=== PATIENT | female | born 1980 | race Caucasian/White ===

== ENCOUNTER 2017-02-27 19:02 | Emergency (ER) | payer OTHER ==
[~2017-02-27] VITALS: Ht 160 cm; Wt 72.1 kg
[~2017-02-27 19:02] MED LIST: ABILIFY10 MG PO; ABILIFY15 MG PO; ADDERALL XR10 MG PO; ALBUTEROL0.09 MG/A2 INH; AMOXICILLIN500 M2 PO; AMOXICILLIN500 MG PO; AMOXIL500 MG PO; ANAFRANIL50 MG; ANAPROX DS550 MG PO; ATIVAN1 MG PO; AUGMENTIN 875 M1 TAB PO; AUGMENTIN 875875 MG PO; Anafranil25 MG PO; BROMFED-DM 480480 ML PO; CIPRO250 MG PO; CIPRO500 MG PO; CIPRO750 MG PO; CLARITIN10 MG PO; CLINDAMYCIN HC300 MG PO; CLINDAMYCIN150 MG PO; CORDROL20 MG PO; CYCLOBENZAPRINE10 MG PO; DIFLUCAN150 MG PO; DIFLUCAN200 MG PO; DITROPAN XL5 MG PO; DOXYCYCLINE MO100 MG PO; DUONEB 3 MG/3 ML3 M1 NEB; EC NAPROSYN500 MG PO; FLEXERIL10 MG PO; FLONASE 0.05% 121 EA NAS; KEFLEX500 MG PO; LEVAQUIN750 MG PO; MACROBID100 M1 PO; MICONAZOLE2% VG; MONISTAT 72% VG; MOTRIN600 MG PO; MOTRIN800 MG PO; MULTIVITAMIN FO1 CAP PO; NAPROSYN500 MG PO; NEURONTIN100 MG PO; PARAFON FORTE500 MG PO; PREDNICOT20 MG PO; PROZAC10 MG PO; PYRIDIUM200 MG PO; RISPERDAL2 MG PO; ROBITUSSIN DM 105 ML PO; SEPTRA DS 800 M1 TAB PO; SUBOXONE PO; TORADOL10 MG PO; TRAMADOL HCL50 MG PO; ULTRAM50 MG PO; VALIUM10 MG PO; VALIUM5 MG PO; VIBRA-TAB100 MG PO; VIBRAMYCIN100 MG PO; VICODIN 500 MG-1 TAB PO; VISTARIL25 M1 PO; VISTARIL50 MG PO; XANAX0.25 MG PO; XANAX1 MG PO; ZITHROMAX250 MG PO; ZOLOFT50 MG PO
[2017-02-27] MEDS ORDERED: ZITHROMAX250 MG PO (20:06)
== END 2017-02-27 20:22 | disposition home or self-care (01) ==
LOC: ED 19:02
DX: H66.91 Otitis media, unspecified, right ear (principal); M54.42 Lumbago with sciatica, left side; G89.29 Other chronic pain; Z98.51 Tubal ligation status; Z98.890 Other specified postprocedural states; Z79.899 Other long term (current) drug therapy; Z88.1 Allergy status to other antibiotic agents; Z88.8 Allergy status to other drugs, medicaments and biological substances; Z88.6 Allergy status to analgesic agent

== ENCOUNTER 2018-03-01 11:50 | Emergency (ER) | payer OTHER ==
[~2018-03-01] VITALS: Ht 12.7 cm; Wt 68.0 kg
[2018-03-01] MEDS ORDERED: MEDROL DOSEPAK4 MG PO (12:21)
[2018-03-01] MEDS ORDERED: NAPROSYN500 MG PO (12:21)
[2018-03-01] MEDS ORDERED: ZYRTEC10 MG PO (12:21)
[2018-03-01] MEDS ORDERED: ROBAXIN500 M1 PO (12:21)
== END 2018-03-01 13:16 | disposition home or self-care (01) ==
LOC: ED 11:50
DX: H66.92 Otitis media, unspecified, left ear (principal); M54.42 Lumbago with sciatica, left side; Z88.2 Allergy status to sulfonamides; Z79.899 Other long term (current) drug therapy

== ENCOUNTER 2018-05-16 12:33 | Emergency (ER) | payer OTHER ==
[~2018-05-16] VITALS: Ht 162.5 cm; Wt 72.6 kg
[~2018-05-16 12:33] MED LIST changes: +MEDROL DOSEPAK4 MG PO; +ROBAXIN500 M1 PO; +ZYRTEC10 MG PO
[2018-05-16 12:59] LABS: BILIRUBIN NEGATIVE (NEGATIVE); BLOOD 2+ (NEGATIVE); CLARITY TURBID (CLEAR); COLOR YELLOW (YELLOW); GLUCOSE NEGATIVE (NEGATIVE); KETONE NEGATIVE (NEGATIVE); LEUKO ESTERASE 3+ (NEGATIVE); NITRITE POSITIVE (NEGATIVE); UROBILINOGEN 0.2 E.U./dl (0.2-1.0)
[2018-05-16 13:06] LABS: BACTERIA 4+; WBC TNTC wbc/hpf (0-5)
[2018-05-16] MEDS ORDERED: MACROBID100 M1 PO (13:30)
[2018-05-16] MEDS ORDERED: CYCLOBENZAPRINE10 MG PO (13:31)
[2018-05-16] MEDS ORDERED: PREDNISONE50 MG PO (13:31)
== END 2018-05-16 13:19 | disposition home or self-care (01) ==
LOC: ED 12:33
PROVIDERS: Nurse Practitioner Family
DX: N39.0 Urinary tract infection, site not specified (principal); M54.32 Sciatica, left side; Z88.2 Allergy status to sulfonamides; Z79.2 Long term (current) use of antibiotics; Z79.899 Other long term (current) drug therapy

== ENCOUNTER 2018-06-05 23:05 | Emergency (ER) | payer OTHER ==
[~2018-06-05] VITALS: Ht 162.5 cm; Wt 72.6 kg
[~2018-06-05 23:05] MED LIST changes: +PREDNISONE50 MG PO
[2018-06-06 00:26] LABS: BILIRUBIN 1+ (NEGATIVE); BLOOD TRACE-INTACT (NEGATIVE); CLARITY SL CLOUDY (CLEAR); COLOR YELLOW (YELLOW); GLUCOSE NEGATIVE (NEGATIVE); KETONE NEGATIVE (NEGATIVE); LEUKO ESTERASE 1+ (NEGATIVE); NITRITE NEGATIVE (NEGATIVE); SPECIFIC GRAVITY 1.025 (1.005-1.030)
[2018-06-06 00:31] LABS: MUCOUS TRACE
[2018-06-06 00:35] LABS: WBC 16-20 wbc/hpf (0-5)
[2018-06-06] MEDS ORDERED: PREDNISONE10 MG PO (00:57)
[2018-06-06] MEDS ORDERED: ZITHROMAX250 MG PO (00:57)
[2018-06-06] MEDS ORDERED: PROAIR HFA8.5 GM INH (00:57)
== END 2018-06-06 01:12 | disposition home or self-care (01) ==
LOC: ED 23:05
PROVIDERS: Physician Assistant
DX: J40 Bronchitis, not specified as acute or chronic (principal); A59.9 Trichomoniasis, unspecified; F17.200 Nicotine dependence, unspecified, uncomplicated; Z87.440 Personal history of urinary (tract) infections; Z88.2 Allergy status to sulfonamides; Z79.899 Other long term (current) drug therapy

== ENCOUNTER → 2018-11-28 | Outpatient (CLI) | payer OTHER ==
[~2018-11-28] MED LIST changes: +MIRALAX POWDER17 G1 PO; -NEURONTIN100 MG PO; +NEURONTIN600 MG PO; +PREDNISONE10 MG PO; +PROAIR HFA8.5 GM INH; +SUBOXONE 8 MG-1 EACH PO; -SUBOXONE PO
[2018-11-28 16:10] LABS: BASO % 0.5 % (0.0-1.0); EOS # 0.1 10*3/uL (0.0-0.4); EOS % 1.4 % (1.0-4.0); HEMATOCRIT 41.5 % (37.0-47.0); HEMOGLOBIN 13.4 g/dl (12.0-16.0); LYMPH # 2.3 10*3/uL (1.3-4.4); LYMPH % 36.2 % (27.0-41.0); MEAN CELL VOLUME 83.8 fl (81.0-99.0); MEAN CORPUSCULAR HGB 27.1 pg (27.0-31.0); MEAN CORPUSCULAR HGB CONC 32.3 g/dl (33.0-37.0); MEAN PLATELET VOLUME 9.7 fl (9.6-12.3); MONO # 0.3 10*3/uL (0.1-1.0); MONO % 4.2 % (3.0-9.0); NEUT # 3.7 10*3/uL (2.3-7.9); NEUT % 57.4 % (47.0-73.0); PLATELET COUNT AUTOMATED 167 10*3/uL (130-400); RED BLOOD COUNT 4.95 10*6/uL (4.10-5.10); RED CELL DISTRI WIDTH 15.1 % (0-14.5); WHITE BLOOD COUNT 6.4 10*3/uL (4.8-10.8)
[2018-11-28 16:24] LABS: ALBUMIN 3.6 gm/dl (3.1-4.5); ALKALINE PHOSPHATASE 79 U/L (45-117); BILIRUBIN, DIRECT < 0.1 mg/dL (0.0-0.2); CHLORIDE 109 mmol/L (98-107); POTASSIUM 4.4 mmol/L (3.5-5.1); SGOT/AST 10 IU/L (3-35); SGPT/ALT 17 U/L (12-78); SODIUM 139 mmol/L (136-145); TOTAL PROTEIN 7.8 gm/dL (6.4-8.2)
[2018-11-29 11:09] LABS: BUN 10 mg/dl (7-24); CREATININE 0.71 mg/dL (0.55-1.02)
[2018-11-30 07:04] LABS: HEPATITIS B SURFACE AG Negative (Negative)
[2018-12-03 15:37] LABS: HEPATITIS C VIRUS ANTIBODY >11.0 s/co (0.0-0.9)
[2018-12-08 17:07] LABS: CORN, IGE <0.10 kU/L (Class 0); MILK (COW), IGE <0.10 kU/L (Class 0); PEANUT, IGE <0.10 kU/L (Class 0); SOYBEAN, IGE <0.10 kU/L (Class 0); WHEAT, IGE <0.10 kU/L (Class 0)
[2018-12-09 06:34] LABS: ALTERNARIA ALTERNATA, IGE <0.10 kU/L (Class 0); AMERICAN ELM, IGE <0.10 kU/L (Class 0); ASPERGILLUS FUMIGATU, IGE <0.10 kU/L (Class 0); BERMUDA GRASS, IGE <0.10 kU/L (Class 0); BIRCH, COMMON SILVER IGE <0.10 kU/L (Class 0); CLADOSPORIUM HERBARU, IGE <0.10 kU/L (Class 0); D FARINAE MITE <0.10 kU/L (Class 0); D PTERONYSSINUS <0.10 kU/L (Class 0); DOG DANDER, IGE <0.10 kU/L (Class 0); IMMUNOGLOBULIN IgE 002170 21 IU/mL (6-495); MAPLE LEAF SYCAMORE, IGE <0.10 kU/L (Class 0); MAPLE/BOX ELDER, IGE <0.10 kU/L (Class 0); MOUSE URINE IGE <0.10 kU/L (Class 0); PENICILLIUM CHRYSOGENUM, IGE <0.10 kU/L (Class 0); ROUGH PIGWEED, IGE <0.10 kU/L (Class 0); SHEEP SORREL (DOCK), IGE <0.10 kU/L (Class 0); SHORT RAGWEED, IGE <0.10 kU/L (Class 0); TIMOTHY, IGE <0.10 kU/L (Class 0); WALNUT TREE, IGE <0.10 kU/L (Class 0); WHITE ASH, IGE <0.10 kU/L (Class 0); WHITE MULBERRY, IGE <0.10 kU/L (Class 0); WHITE OAK, IGE <0.10 kU/L (Class 0)
== END | disposition home or self-care (01) ==
LOC: LAB 15:34
PROVIDERS: Anesthesiology Addiction Medicine; Pediatrics
DX: T78.1XXA Other adverse food reactions, not elsewhere classified, initial encounter (principal); F11.20 Opioid dependence, uncomplicated; X58.XXXA Exposure to other specified factors, initial encounter

== ENCOUNTER 2019-01-29 13:55 | Inpatient (IN) | payer OTHER ==
[~2019-01-29] VITALS: Ht 162.6 cm; Wt 77.6 kg
--- NOTE | ~2019-01-29 | EKG ---
[place], [place] ELECTROCARDIOGRAM REPORT NAME: ALIVIA PATTON UNIT #: [id number] ROOM: [facility] DOCTOR: LUCIE DRAFT REPORT BIRTHDATE: [birth year] [facility] Test Date: 2019-01-29 Test Time: 16:19:38 Pat Name: ALIVIA PATTON Department: Room: [facility] 1 Gender: F Main Entree Cook And Cashier: : 1980 Requested By: HENRY NEVES Order Number: [id number] Reading MD: Sharath Gibson MD Measurements Intervals [place] Rate: 77 P: 66 [place]: 141 QRS: 46 QRSD: 99 T: 58 QT: 392 QTc: 444 Interpretive Statements Sinus rhythm Ventricular premature complex No previous ECG available for comparison Electronically Signed On 01-30-2019 8:18:07 PDT by Sharath Gibson MD CM:EKGRPT:ELECTROCARDIOGRAM REPORT [id number] HENRY FAULKNER DRAFT REPORT HENRY NEVES
--- NOTE | 2019-01-29 14:50 | NUR ---
PATIENT MEETS [facility]. CINA=16. PATIENT WANTS TO FOLLOW UP WITH [facility] FOR HER AFTERCARE PLAN. VICENTE MADDOX B.A. LEAK OPERATOR [employer]
[2019-01-29 15:00] VITALS: BP 133/89
[2019-01-29 16:00] VITALS: BP 133/89
[2019-01-29 16:50] LABS: BILIRUBIN NEGATIVE (NEGATIVE); BLOOD NEGATIVE (NEGATIVE); CLARITY CLEAR (CLEAR); COLOR YELLOW (YELLOW); GLUCOSE NEGATIVE (NEGATIVE); KETONE NEGATIVE (NEGATIVE); LEUKO ESTERASE NEGATIVE (NEGATIVE); NITRITE NEGATIVE (NEGATIVE); SPECIFIC GRAVITY 1.015 (1.005-1.030)
[2019-01-29 16:53] LABS: BASO % 0.7 % (0.0-1.0); EOS # 0.1 10*3/uL (0.0-0.4); HEMATOCRIT 40.1 % (37.0-47.0); HEMOGLOBIN 13.4 g/dl (12.0-16.0); LYMPH # 2.3 10*3/uL (1.3-4.4); LYMPH % 36.9 % (27.0-41.0); MEAN CORPUSCULAR HGB 27.7 pg (27.0-31.0); MEAN CORPUSCULAR HGB CONC 33.4 g/dl (33.0-37.0); MEAN PLATELET VOLUME 9.9 fl (9.6-12.3); MONO # 0.4 10*3/uL (0.1-1.0); MONO % 7.1 % (3.0-9.0); NEUT # 3.2 10*3/uL (2.3-7.9); PLATELET COUNT AUTOMATED 149 10*3/uL (130-400); RED BLOOD COUNT 4.83 10*6/uL (4.10-5.10); RED CELL DISTRI WIDTH 13.9 % (0-14.5); WHITE BLOOD COUNT 6.1 10*3/uL (4.8-10.8)
[2019-01-29 17:02] LABS: ALBUMIN 3.7 gm/dl (3.1-4.5); ALKALINE PHOSPHATASE 69 U/L (45-117); BUN 7 mg/dl (7-24); CHLORIDE 112 mmol/L (98-107); CREATININE 0.75 mg/dL (0.55-1.02); POTASSIUM 4.2 mmol/L (3.5-5.1); SGOT/AST 16 IU/L (3-35); SGPT/ALT 18 U/L (12-78); SODIUM 141 mmol/L (136-145); TOTAL PROTEIN 7.4 gm/dL (6.4-8.2)
[2019-01-29 17:04] LABS: URINE AMPHETAMINES > 1000 (1000ng/ml); URINE BARBITURATES < 200 (200ng/ml); URINE BENZODIAZEPINES > 200 (200ng/ml); URINE CANNABINOIDS (THC) < 50 (50ng/ml); URINE COCAINE > 300 (300ng/ml); URINE METHADONE < 300 (300ng/ml); URINE OPIATES > 300 (300ng/ml)
[2019-01-29 17:07] LABS: BACTERIA TRACE
[2019-01-29 17:08] LABS: BETA-HCG, QUANT < 1.0 mIU/mL (1-3)
[2019-01-29 17:09] LABS: URINE PHENCYCLIDINE < 25 (25ng/ml)
--- NOTE | 2019-01-29 17:20 | NUR ---
PT RESTLESS IN BED, VERY ANXIOUS. MEDICATED WITH ROBAXIN FOR MUSCLE ACHES, REQUIP FOR RESTLESS LEGS, XANAX FOR ANXIETY. MEDICATED WITH NEURONTIN FOR FEET PAIN. TOLERATED ROUTINE SUBUTEX PO PER ORDER, SEE EMAR.
--- NOTE | 2019-01-29 19:19 | NUR ---
24 HR chart check completed.
[2019-01-29 20:00] VITALS: BP 140/82
--- NOTE | 2019-01-29 21:26 | NUR ---
PATIENT MEDICATED WITH PRNs FOR C/O WITHDRAWAL SYMPTOMS, SEE EMAR. WILL CONTINUE TO MONITOR.
--- NOTE | 2019-01-29 21:41 | NUR ---
MEDICATIONS TIMING ADJUSTED FOR NEURONTIN AND PROZAC D/T HOW PATIENT TAKES AT HOME.
[2019-01-30] VITALS: BP 112/66
[2019-01-30 08:00] VITALS: BP 94/60
--- NOTE | 2019-01-30 08:00 | NUR ---
PT TOLERATED ROUTINE MED WITH NO PROBLEM. C/O LEG CRAMPING AND RESTLESS. MEDICATED WITH ROBAXIN PO AND REQUIP PO. SEE EMAR CALL LIGHT IN REACH. SEE SHIFT ASSESSMENT.
--- NOTE | 2019-01-30 09:10 | NUR ---
MEDICATED WITH XANAX PER ROUTINE ORDER, SEE EMAR. FOR ANXIETY. CALL LIGHT IN REACH.
--- NOTE | 2019-01-30 10:00 | NUR ---
Patient resting. Responding to scheduled medications with fewer complaints of pain and anxiety.
--- NOTE | 2019-01-30 11:30 | NUR ---
RESTING IN BED WITH EYES CLOSED. RESP-EASY AND REGULAR. CALL LIGHT IN REACH.
[2019-01-30 12:00] VITALS: BP 116/76
--- NOTE | 2019-01-30 13:20 | NUR ---
PT MEDICATED WITH PO ZOFRAN FOR COMPLAINTS OF NAUSEA. WILL MONITOR FOR EFFECTIVENESS OF MED.
--- NOTE | 2019-01-30 15:44 | NUR ---
PATIENT'S AFTERCARE PLAN REMAINS THE SAME. PATIENT IS GOING TO FOLLOW UP WITH [facility] IN [place]. VICENTE MADDOX B.A. DIRECTOR OF SLOT OPERATIONS
[2019-01-30 16:00] VITALS: BP 110/55
--- NOTE | 2019-01-30 19:11 | NUR ---
24 HR chart check completed.
--- NOTE | 2019-01-30 21:48 | NUR ---
LYFT DRIVER CAME TO ME AND STATED THAT THE PT'S ROOM SMELLS LIKE SMOKE. MYSELF AND THE LYFT DRIVER ENTERED THE ROOM AND ASKED THE PATIENT IF SHE WAS SMOKING, THE PATIENT DENIED SMOKING AND STATED THAT THEY LOCKED HER CIGARETTES UP WHEN SHE CAME IN. EXPLAINED TO THE PATIENT THAT IT WAS IMPORTANT TO NOT SMOKE AND THAT PER POLICY WITH [facility] CAUGHT SMOKING WOULD BE AN AUTOMATIC DISCHARGE. PT STILL DENIED SMOKING AND STATED THAT SHE WOULD NOT SMOKE INSIDE. DR. MURRAY WAS CALLED AND MADE AWARE OF THE SITUATION. HE STATED TO JUST MONITOR THE PATIENT AT THIS TIME.
[2019-01-31] VITALS: BP 101/57; BP 105/57
[2019-01-31 08:00] VITALS: BP 100/52
--- NOTE | 2019-01-31 08:15 | NUR ---
PATIENT SITTING UP IN BED. PRN BENTYL GIVEN FOR C/O STOMACH CRAMPS. PRN MOTRIN GIVEN FOR C/O HEADACHE. WILL MONITOR FOR EFFECTIVENESS.
--- NOTE | 2019-01-31 09:00 | NUR ---
PRN MOTRIN & BENTYL EFFECTIVE PER PATIENT.
[2019-01-31 12:00] VITALS: BP 103/58
--- NOTE | 2019-01-31 13:03 | NUR ---
PATIENT HAS AN APPOINTMENT WITH [facility] IN [place] ON MONDAY, AT NOON. VICENTE MADDOX B.A. RECREATION PROFESSOR
[2019-01-31 16:00] VITALS: BP 104/77
--- NOTE | 2019-01-31 18:37 | NUR ---
Patient resting quietly with no c/o discomfort. Respirations easy and regular. Vital signs stable. No overt distress. MEKHI RAMÍREZ
[2019-01-31 20:00] VITALS: BP 125/60
--- NOTE | 2019-01-31 20:00 | NUR ---
PATIENT RESTING IN BED WITH EYES CLOSED AT THIS TIME. PATIENT DENIES ANY TREMORS, SWEATS, MUSCLES ACHES AT THIS TIME. PATIENT C/O CONSTIPATION AT THIS TIME- DULCOLAX WILL BE ADMINISTERED. CALL LIGHT WITHIN REACH. WILL MONITOR.
--- NOTE | 2019-01-31 22:02 | NUR ---
SENOKOT ADMINISTERED FOR COMPLAINTS OF CONSTIPATION. WILL MONITOR FOR EFFECTIVENESS.
--- NOTE | 2019-01-31 22:09 | NUR ---
PATIENT C/O NAUSEA. ZOFRAN ADMINISTERED PRESCRIBED. WILL MONITOR FOR EFFECTIVENESS.
--- NOTE | 2019-01-31 22:27 | NUR ---
PATIENT REQUESTING FOR NICODERM PATCH TO BE CHANGED. HAS NOT BEEN CHANGED SINCE 01/29. OLD PATCH REMOVED AND NEW PATCH PLACED ON RIGHT UPPER ARM.
[2019-02-01] VITALS: BP 106/68
--- NOTE | 2019-02-01 | NUR ---
PATIENT RESTING WITH EYES CLOSED. RESPIRATIONS EASY AND UNLABORED ON ROOM AIR. NO FURTHER COMPLAINTS OF NAUSEA. CALL S[place]TON WITHIN REACH. WILL MONITOR.
--- NOTE | 2019-02-01 03:27 | NUR ---
24 HR chart check completed.
[2019-02-01 07:25] LABS: CREATININE 0.76 mg/dL (0.55-1.02)
[2019-02-01 07:33] LABS: BASO % 0.5 % (0.0-1.0); EOS # 0.1 10*3/uL (0.0-0.4); EOS % 1.7 % (1.0-4.0); HEMATOCRIT 39.1 % (37.0-47.0); HEMOGLOBIN 12.9 g/dl (12.0-16.0); LYMPH # 2.6 10*3/uL (1.3-4.4); LYMPH % 41.7 % (27.0-41.0); MEAN PLATELET VOLUME 10.8 fl (9.6-12.3); MONO # 0.4 10*3/uL (0.1-1.0); MONO % 5.5 % (3.0-9.0); NEUT # 3.1 10*3/uL (2.3-7.9); NEUT % 49.6 % (47.0-73.0); PLATELET COUNT AUTOMATED 133 10*3/uL (130-400); WHITE BLOOD COUNT 6.3 10*3/uL (4.8-10.8)
--- NOTE | 2019-02-01 07:34 | NUR ---
MEDICATED WITH SL ZOFRAN ORDERED PER PT REQUEST FOR C/O NAUSEA.
[2019-02-01 08:00] VITALS: BP 114/64
--- NOTE | 2019-02-01 09:18 | NUR ---
MEDICATED WITH PO DULCOLAX ORDERED PER PT REQUEST FOR C/O CONSTIPATION.
--- NOTE | 2019-02-01 10:00 | NUR ---
PATIENT STATED PRN DULCOLAX WAS NOT EFFECTIVE. PRN ZOFRAN WAS EFFECTIVE.
--- NOTE | 2019-02-01 11:30 | NUR ---
PATIENT GIVEN ALL DISCHARGE INSTRUCTIONS AND ALL QUESTIONS ANSWERED. PATIENT STATED SHE COULD NOT LEAVE UNTIL 330-4PM WHEN SHE HAD KEYS TO HER APARTMENT. TREATING ENGINEER NOTIFIED THAT PATIENT HAD BELONGINGS IN THE LOCK BOX.
--- NOTE | 2019-02-01 15:30 | NUR ---
PATIENT STATED SHE NEEDED ANOTHER HALF HOUR BEFORE SHE COULD LEAVE. INFORMED PATIENT TO LET US KNOW SO WE CAN RETURN HER STUFF.
[2019-02-01 16:00] VITALS: BP 114/64
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
== END 2019-02-01 17:01 | disposition home or self-care (01) | DRG 897 ==
LOC: 5E 13:55
PROVIDERS: Internal Medicine; ADMIT Internal Medicine
DX: F11.23 Opioid dependence with withdrawal (principal); B37.3 Candidiasis of vulva and vagina; H60.503 Unspecified acute noninfective otitis externa, bilateral; G89.29 Other chronic pain; M54.40 Lumbago with sciatica, unspecified side; F43.10 Post-traumatic stress disorder, unspecified; F32.9 Major depressive disorder, single episode, unspecified; M54.16 Radiculopathy, lumbar region; F17.210 Nicotine dependence, cigarettes, uncomplicated; Z71.6 Tobacco abuse counseling; Z98.51 Tubal ligation status; Z98.891 History of uterine scar from previous surgery; Z88.2 Allergy status to sulfonamides

== ENCOUNTER 2019-03-26 16:46 | Inpatient (IN) | payer OTHER ==
[~2019-03-26] VITALS: Ht 163.8 cm; Wt 79.9 kg
--- NOTE | 2019-03-26 17:16 | NUR ---
PATIENT MEETS [facility]. CINA=18. PATIENT WANTS TO FOLLOW UP WITH [facility] FOR HER AFTERCARE PLAN. VICENTE MADDOX B.A. SEARCH LEAD
[2019-03-26 17:46] VITALS: BP 142/94
--- NOTE | 2019-03-26 17:46 | NUR ---
Time: 1745 A 38 year old FEMALE admitted to under services of RITESH RAYGOZA DO. Pt. arrived [place] ambulatory from [place]. Chief complaint: OPIATE WITHDRAWAL. JOAN BRADFORD
[2019-03-26] MEDS ORDERED: PROVENTIL HFA6.7 GM INH (18:10)
[2019-03-26 18:30] LABS: BASO % 0.5 % (0.0-1.0); EOS # 0.1 10*3/uL (0.0-0.4); EOS % 0.8 % (1.0-4.0); HEMATOCRIT 41.6 % (37.0-47.0); HEMOGLOBIN 13.5 g/dl (12.0-16.0); LYMPH # 1.9 10*3/uL (1.3-4.4); MEAN CELL VOLUME 83.9 fl (81.0-99.0); MEAN CORPUSCULAR HGB 27.2 pg (27.0-31.0); MEAN CORPUSCULAR HGB CONC 32.5 g/dl (33.0-37.0); MEAN PLATELET VOLUME 10.1 fl (9.6-12.3); MONO # 0.3 10*3/uL (0.1-1.0); MONO % 4.6 % (3.0-9.0); NEUT # 4.1 10*3/uL (2.3-7.9); NEUT % 64.9 % (47.0-73.0); PLATELET COUNT AUTOMATED 134 10*3/uL (130-400); RED BLOOD COUNT 4.96 10*6/uL (4.10-5.10); RED CELL DISTRI WIDTH 13.8 % (0-14.5); WHITE BLOOD COUNT 6.4 10*3/uL (4.8-10.8)
[2019-03-26 18:41] LABS: ALBUMIN 3.4 gm/dl (3.1-4.5); ALKALINE PHOSPHATASE 84 U/L (45-117); BUN 12 mg/dl (7-24); CHLORIDE 107 mmol/L (98-107); CREATININE 0.77 mg/dL (0.55-1.02); POTASSIUM 3.8 mmol/L (3.5-5.1); SGOT/AST 14 IU/L (3-35); SGPT/ALT 19 U/L (12-78); SODIUM 137 mmol/L (136-145); TOTAL PROTEIN 7.9 gm/dL (6.4-8.2)
[2019-03-26 18:47] LABS: ETHYL ALCOHOL < 3.0 mg/dl (<3)
[2019-03-26 18:54] LABS: BILIRUBIN NEGATIVE (NEGATIVE); BLOOD NEGATIVE (NEGATIVE); CLARITY CLEAR (CLEAR); COLOR STRAW (YELLOW); GLUCOSE NEGATIVE (NEGATIVE); KETONE NEGATIVE (NEGATIVE); LEUKO ESTERASE NEGATIVE (NEGATIVE); NITRITE NEGATIVE (NEGATIVE); SPECIFIC GRAVITY <= 1.005 (1.005-1.030); UROBILINOGEN 0.2 E.U./dl (0.2-1.0)
[2019-03-26 18:55] LABS: INTERNATIONAL NORM RATIO 0.9 (2.0-3.5)
[2019-03-26 18:56] LABS: URINE AMPHETAMINES < 1000 (1000ng/ml); URINE BARBITURATES < 200 (200ng/ml); URINE BENZODIAZEPINES > 200 (200ng/ml); URINE CANNABINOIDS (THC) < 50 (50ng/ml); URINE COCAINE < 300 (300ng/ml); URINE METHADONE < 300 (300ng/ml); URINE OPIATES < 300 (300ng/ml)
[2019-03-26 19:04] LABS: BACTERIA TRACE; EPITHELIAL CELLS 0-2
[2019-03-26 19:07] LABS: URINE PHENCYCLIDINE < 25 (25ng/ml)
[2019-03-26 20:00] VITALS: BP 113/76
--- NOTE | 2019-03-26 20:03 | NUR ---
C/O RESTLESSNESS IN LEGS AND MUSCLE ACHES. REQUIP AND ROBAXIN GIVEN PER ORDER FOR WITHDRAWL SYMPTOMS. SEE MAR.
--- NOTE | 2019-03-26 21:00 | NUR ---
REQUIP AND ROBAXIN EFFECTIVE FOR LEG RESTLESSNES AND MUSCLE ACHES PER PT.
--- NOTE | 2019-03-26 21:45 | NUR ---
PT. REGINA CASAS SAYS "I TAKE THAT IN THE MORNIGN".
[2019-03-27] VITALS: BP 113/74
--- NOTE | 2019-03-27 00:37 | NUR ---
24 HR chart check completed.
[2019-03-27 04:00] VITALS: BP 118/77
[2019-03-27 08:00] VITALS: BP 114/78
--- NOTE | 2019-03-27 09:23 | NUR ---
PATIENT MEDICATED WITH PO ROBAXIN AT THIS TIME FOR COMPLAINTS OF LEG PAIN/MUSCLE ACHES. WILL MONITOR FOR EFFECTIVENESS.
--- NOTE | 2019-03-27 10:30 | NUR ---
PT STATES THAT LEGS ARE FEELING LESS CRAMPED; ROBAXIN EFFECTIVE.
--- NOTE | 2019-03-27 11:52 | NUR ---
PT C/O ABD CRAMPING AT THIS TIME AND MEDICATED WITH PO BENTYL PER ORDER. WILL MONITOR FOR EFFECTIVENESS.
[2019-03-27 12:00] VITALS: BP 120/77
--- NOTE | 2019-03-27 13:00 | NUR ---
PER PATIENT, PRN MEDICATION HAVE BEEN EFFECTIVE.
--- NOTE | 2019-03-27 13:12 | NUR ---
PT MEDICATED WITH PO REQUIP & ZOFRAN FOR COMPLAINTS OF RESTLESSNESS IN LEGS AND NAUSEA. WILL MONITOR FOR EFFECTIVENESS.
[2019-03-27 16:00] VITALS: BP 113/71
--- NOTE | 2019-03-27 16:40 | NUR ---
PATIENT IS GOING TO FOLLOW UP WITH [facility] FOR HER AFTERCARE PLAN. VICENTE MADDOX B.A. AUTOMOTIVE WARRANTY ADMINISTRATOR
--- NOTE | 2019-03-27 19:42 | NUR ---
C/O NAUSEA AND MUSCLE CRAMPS IN HER LEGS. ZOFRAN AND ROBAXIN GIVEN PER ORDER FOR WITHDRAWL SYMPTOMS.
[2019-03-27 20:00] VITALS: BP 121/82
--- NOTE | 2019-03-27 20:40 | NUR ---
ZOFRAN AND ROBAXIN EFFECTIVE FOR NAUSEA AND MUSCLE CRAMPING PER PT.
[2019-03-28] VITALS: BP 116/62
--- NOTE | 2019-03-28 01:00 | NUR ---
C/O NAUSEA, ZOFRAN GIVEN FOR THIS. C/O RESTLESSNESS OF LEGS REQUIP GIVEN FOR THIS.SEE MAR.
--- NOTE | 2019-03-28 02:00 | NUR ---
ZOFRAN AND REQUIP EFFECTIVE FOR NAUSEA AND RESTLESSNESS PER PT.
--- NOTE | 2019-03-28 03:59 | NUR ---
24 HR chart check completed.
--- NOTE | 2019-03-28 06:00 | NUR ---
SLEPT WELL THROUGH OUT NIGHT. NO C/O THIS AM.
[2019-03-28 08:00] VITALS: BP 106/60
--- NOTE | 2019-03-28 09:45 | NUR ---
PATIENT C/O NAUSEA AND MUSCLE ACHES AT THIS TIME AND REQUESTING PRN MEDICATION. MEDICATED WITH ZOFRAN AND ROBAXIN PER ORDER. ALSO APPLIED NICODERM PATCH PER ORDER. WILL MONITOR.
--- NOTE | 2019-03-28 11:00 | NUR ---
PT STATES THAT NAUSEA AND MUSCLE ACHES HAVE IMPROVED; PRN MEDS EFFECTIVE AT THIS POINT.
--- NOTE | 2019-03-28 11:56 | NUR ---
PATIENT C/O STOMACH CRAMPING AT THIS TIME AND MEDICATED WITH BENTYL PER ORDER. WILL MONITOR FOR EFFECTIVENESS.
[2019-03-28 12:00] VITALS: BP 119/68
--- NOTE | 2019-03-28 12:00 | NUR ---
PT MEDICATED WITH PO BENTYL PER ORDER FOR STOMACH CRAMPS. WILL MONITOR.
--- NOTE | 2019-03-28 13:15 | NUR ---
PER PATIENT, PRN BENTYL HAS BEEN EFFECTIVE. NO FURTHER COMPLAINTS AT THIS TIME.
--- NOTE | 2019-03-28 15:52 | NUR ---
PATIENT WILL BE FOLLOWING UP WITH [facility]. PATIENT HAS AN UPCOMING APPOINTMENT ON MONDAY, March AT 9AM. VICENTE MADDOX B.A. AMBULATORY CARE COORDINATOR
[2019-03-28 16:00] VITALS: BP 130/75
--- NOTE | 2019-03-28 17:12 | NUR ---
PATIENT COMPLAINING OF RESTLESS LEGS AT THIS TIME. MEDICATED WITH PO REQUIP PER PRN ORDER. WILL MONITOR FOR EFFECTIVENESS.
--- NOTE | 2019-03-28 18:30 | NUR ---
PATIENT STATES THAT LEGS HAVE IMPROVED AT THIS TIME, DENIES COMPLAINTS. CALL LIGHT WITHIN REACH.
--- NOTE | 2019-03-28 19:48 | NUR ---
C/O MUSCLE CRAMPING IN LEGS AND ABD CRAMPING. ROBAXIN AND BENTYL GIVEN FOR THESE WITHDRAWL SYMPTOMS. SEE MAR.
[2019-03-28 20:00] VITALS: BP 111/58
--- NOTE | 2019-03-28 20:40 | NUR ---
ROBAXIN AND BENTYL EFFECTIVE FOR CRAMPS PER PT.
--- NOTE | 2019-03-28 20:53 | NUR ---
24 HR chart check completed.
--- NOTE | 2019-03-28 23:15 | NUR ---
ZOFRAN GIVEN PER ORDER FOR NAUSEA SEE MAR.
[2019-03-29] VITALS: BP 123/65
--- NOTE | 2019-03-29 00:30 | NUR ---
ZOFRAN EFFECTIVE FOR NAUSEA PER PT.
--- NOTE | 2019-03-29 06:01 | NUR ---
C/O RESTLESSNESS OF HER LEGS REQUIP GIVEN PER ORDER FOR WITHDRAWL SYMPTOM. SEE MAR.
[2019-03-29 08:00] VITALS: BP 103/67
--- NOTE | 2019-03-29 09:42 | NUR ---
PRN MEDICATIONS HAVE BEEN EFFECTIVE FOR RELIEF OF CRAMPY MUSCLES/STOMACH
[2019-03-29] MEDS ORDERED: DOXYCYCLINE MO100 M1 PO (10:37)
--- NOTE | 2019-03-29 12:25 | NUR ---
Pt came to nurses station and states she leaving.
--- NOTE | 2019-03-29 12:46 | NUR ---
DC TO HOME
== END 2019-03-29 12:25 | disposition home or self-care (01) | DRG 773 ==
LOC: 5E 16:46
PROVIDERS: Student in an Organized Health Care Education/Training Program; ADMIT Family Medicine
DX: F11.23 Opioid dependence with withdrawal (principal); F41.9 Anxiety disorder, unspecified; F19.10 Other psychoactive substance abuse, uncomplicated; F32.9 Major depressive disorder, single episode, unspecified; J45.909 Unspecified asthma, uncomplicated; M54.9 Dorsalgia, unspecified; G89.29 Other chronic pain; F43.10 Post-traumatic stress disorder, unspecified; F17.210 Nicotine dependence, cigarettes, uncomplicated; Z98.51 Tubal ligation status; Z98.891 History of uterine scar from previous surgery; Z82.49 Family history of ischemic heart disease and other diseases of the circulatory system; Z83.3 Family history of diabetes mellitus; Z84.1 Family history of disorders of kidney and ureter; Z80.1 Family history of malignant neoplasm of trachea, bronchus and lung; Z88.2 Allergy status to sulfonamides; Z88.8 Allergy status to other drugs, medicaments and biological substances; Z79.899 Other long term (current) drug therapy; Z71.6 Tobacco abuse counseling

== ENCOUNTER 2019-04-15 13:31 | Emergency (ER) | payer OTHER ==
[~2019-04-15] VITALS: Ht 162.5 cm; Wt 72.6 kg
--- NOTE | ~2019-04-15 | EKG ---
[place], [place] ELECTROCARDIOGRAM REPORT NAME: ALIVIA PATTON UNIT #: [id number] ROOM: DOCTOR: EPIPHANY DRAFT REPORT BIRTHDATE: [birth year] [facility] Test Date: 2019-04-15 Test Time: 13:34:05 Pat Name: ALIVIA PATTON Department: Room: Gender: F Labor/Excavator: : 1980 Requested By: ESTUARDO HERNANDEZ Order Number: [id number] Reading MD: Domonique Yeh MD Measurements Intervals [place] Rate: 99 P: 81 IN: 138 QRS: 46 QRSD: 90 T: 10 QT: 345 QTc: 443 Interpretive Statements Sinus rhythm Compared to ECG 01/29/2019 16:19:38 Ventricular premature complex(es) no longer present Electronically Signed On 04-17-2019 6:36:28 PST by Domonique Yeh MD CM:EKGRPT:ELECTROCARDIOGRAM REPORT [id number] ESTUARDO HERNANDEZ MD EPIPHROSARIO DRAFT REPORT ESTUARDO HERNANDEZ MD
[~2019-04-15 13:31] MED LIST changes: +DOXYCYCLINE MO100 M1 PO; +PROVENTIL HFA6.7 GM INH
[2019-04-15 14:36] LABS: BASO % 0.2 % (0.0-1.0); EOS # 0.1 10*3/uL (0.0-0.4); EOS % 1.2 % (1.0-4.0); HEMOGLOBIN 12.8 g/dl (12.0-16.0); LYMPH # 1.8 10*3/uL (1.3-4.4); LYMPH % 22.1 % (27.0-41.0); MEAN CELL VOLUME 85.3 fl (81.0-99.0); MEAN CORPUSCULAR HGB 27.3 pg (27.0-31.0); MEAN PLATELET VOLUME 9.3 fl (9.6-12.3); MONO # 0.4 10*3/uL (0.1-1.0); MONO % 4.4 % (3.0-9.0); NEUT % 71.9 % (47.0-73.0); PLATELET COUNT AUTOMATED 180 10*3/uL (130-400); RED BLOOD COUNT 4.69 10*6/uL (4.10-5.10); RED CELL DISTRI WIDTH 14.5 % (0-14.5); WHITE BLOOD COUNT 8.3 10*3/uL (4.8-10.8)
[2019-04-15 14:52] LABS: ACT PARTIAL THROMBO TIME 26.8 SECONDS (20.0-32.1); INTERNATIONAL NORM RATIO 0.9 (2.0-3.5)
[2019-04-15 14:53] LABS: ALBUMIN 3.6 gm/dl (3.1-4.5); ALKALINE PHOSPHATASE 88 U/L (45-117); BUN 12 mg/dl (7-24); CHLORIDE 106 mmol/L (98-107); CREATININE 0.85 mg/dL (0.55-1.02); POTASSIUM 3.9 mmol/L (3.5-5.1); SGOT/AST 19 IU/L (3-35); SGPT/ALT 20 U/L (12-78); SODIUM 138 mmol/L (136-145); TOTAL PROTEIN 7.8 gm/dL (6.4-8.2)
[2019-04-15 14:55] LABS: TROPONIN I < 0.015 ng/ml (<0.045)
[2019-04-15] MEDS ORDERED: AVPAK AZITHROM250 MG PO (16:38)
[2019-04-15] MEDS ORDERED: PROVENTIL HFA6.7 GM INH (16:38)
[2019-04-15] MEDS ORDERED: SPIRIVA -- 3018 MCG INH (16:38)
[2019-04-15] MEDS ORDERED: PREDNISONE50 MG PO (16:38)
== END 2019-04-15 17:23 | disposition home or self-care (01) ==
LOC: ED 13:31
PROVIDERS: Emergency Medicine
DX: F13.10 Sedative, hypnotic or anxiolytic abuse, uncomplicated (principal); J44.1 Chronic obstructive pulmonary disease with (acute) exacerbation; J18.9 Pneumonia, unspecified organism; F11.10 Opioid abuse, uncomplicated; G89.29 Other chronic pain; F17.210 Nicotine dependence, cigarettes, uncomplicated; Z79.2 Long term (current) use of antibiotics; Z79.899 Other long term (current) drug therapy

== ENCOUNTER 2019-05-09 12:12 | Inpatient (IN) | payer OTHER ==
[~2019-05-09] VITALS: Ht 162.5 cm; Wt 75.4 kg
[~2019-05-09 12:12] MED LIST changes: +AVPAK AZITHROM250 MG PO; +SPIRIVA -- 3018 MCG INH
--- NOTE | 2019-05-09 13:12 | NUR ---
PATIENT MEETS [facility]. CINA=16. PATIENT WANTS TO FOLLOW UP WITH [facility] FOR RESIDENTIAL TREATMENT. VICENTE MADDOX B.A. DEPUTY PROSECUTING ATTORNEY
[2019-05-09 13:45] VITALS: BP 127/86
[2019-05-09 13:46] LABS: BASO % 0.3 % (0.0-1.0); EOS # 0.2 10*3/uL (0.0-0.4); EOS % 2.3 % (1.0-4.0); HEMATOCRIT 40.1 % (37.0-47.0); HEMOGLOBIN 12.9 g/dl (12.0-16.0); LYMPH # 2.4 10*3/uL (1.3-4.4); LYMPH % 33.9 % (27.0-41.0); MEAN CELL VOLUME 83.5 fl (81.0-99.0); MEAN CORPUSCULAR HGB 26.9 pg (27.0-31.0); MEAN CORPUSCULAR HGB CONC 32.2 g/dl (33.0-37.0); MEAN PLATELET VOLUME 9.6 fl (9.6-12.3); MONO # 0.5 10*3/uL (0.1-1.0); MONO % 6.4 % (3.0-9.0); NEUT % 56.5 % (47.0-73.0); PLATELET COUNT AUTOMATED 203 10*3/uL (130-400); RED CELL DISTRI WIDTH 15.8 % (0-14.5); WHITE BLOOD COUNT 7.1 10*3/uL (4.8-10.8)
--- NOTE | 2019-05-09 13:46 | NUR ---
A 39, admitted to , under the services of RITESH Raygoza DO with a diagnosis of Opiate Dependence. Chief complaint is Opiate withdrawal. [place]. Monitor applied. Initial assessment completed. Vital signs taken and recorded. RITESH RAYGOZA DO notified of admission to the unit. Orders received. See assessment for past medical history, medications and allergies. Patient and/or family oriented to unit. [facility] visitation policy reviewed. Clothing/patient valuable form completed. JOSIAH MARIA
[2019-05-09 13:55] LABS: BILIRUBIN NEGATIVE (NEGATIVE); BLOOD NEGATIVE (NEGATIVE); CLARITY SL CLOUDY (CLEAR); COLOR YELLOW (YELLOW); GLUCOSE NEGATIVE (NEGATIVE); KETONE NEGATIVE (NEGATIVE); LEUKO ESTERASE NEGATIVE (NEGATIVE); NITRITE NEGATIVE (NEGATIVE); SPECIFIC GRAVITY 1.015 (1.005-1.030); UROBILINOGEN 0.2 E.U./dl (0.2-1.0)
[2019-05-09 13:57] LABS: INTERNATIONAL NORM RATIO 0.9 (2.0-3.5)
[2019-05-09 14:01] LABS: ALBUMIN 3.6 gm/dl (3.1-4.5); ALKALINE PHOSPHATASE 406 U/L (45-117); BUN 9 mg/dl (7-24); CHLORIDE 103 mmol/L (98-107); CREATININE 0.86 mg/dL (0.55-1.02); POTASSIUM 3.5 mmol/L (3.5-5.1); SGOT/AST 136 IU/L (3-35); SGPT/ALT 812 U/L (12-78); SODIUM 136 mmol/L (136-145); TOTAL PROTEIN 8.4 gm/dL (6.4-8.2)
[2019-05-09 14:02] LABS: ETHYL ALCOHOL < 3.0 mg/dl (<3)
[2019-05-09 14:03] LABS: BETA-HCG, QUANT < 1.0 mIU/mL (1-3)
[2019-05-09 14:04] LABS: BACTERIA TRACE; MUCOUS 1+
[2019-05-09 14:05] LABS: URINE AMPHETAMINES > 1000 (1000ng/ml); URINE BARBITURATES < 200 (200ng/ml); URINE BENZODIAZEPINES > 200 (200ng/ml); URINE CANNABINOIDS (THC) < 50 (50ng/ml); URINE COCAINE > 300 (300ng/ml); URINE METHADONE < 300 (300ng/ml); URINE OPIATES > 300 (300ng/ml)
[2019-05-09 14:10] LABS: URINE PHENCYCLIDINE < 25 (25ng/ml)
[2019-05-09] MEDS ORDERED: REXULTI1 MG PO ×2 (14:43→14:45)
[2019-05-09 16:00] VITALS: BP 128/95
[2019-05-09 20:00] VITALS: BP 108/72
[2019-05-10] VITALS: BP 115/78
[2019-05-10 06:55] LABS: BASO % 0.3 % (0.0-1.0); EOS # 0.1 10*3/uL (0.0-0.4); EOS % 1.7 % (1.0-4.0); HEMATOCRIT 38.6 % (37.0-47.0); HEMOGLOBIN 12.6 g/dl (12.0-16.0); LYMPH # 2.4 10*3/uL (1.3-4.4); LYMPH % 36.2 % (27.0-41.0); MEAN CELL VOLUME 82.1 fl (81.0-99.0); MEAN CORPUSCULAR HGB 26.8 pg (27.0-31.0); MEAN CORPUSCULAR HGB CONC 32.6 g/dl (33.0-37.0); MEAN PLATELET VOLUME 9.9 fl (9.6-12.3); MONO # 0.5 10*3/uL (0.1-1.0); MONO % 7.6 % (3.0-9.0); NEUT # 3.6 10*3/uL (2.3-7.9); NEUT % 53.9 % (47.0-73.0); PLATELET COUNT AUTOMATED 211 10*3/uL (130-400); RED CELL DISTRI WIDTH 15.8 % (0-14.5); WHITE BLOOD COUNT 6.6 10*3/uL (4.8-10.8)
[2019-05-10 07:10] LABS: ALKALINE PHOSPHATASE 340 U/L (45-117); BUN 13 mg/dl (7-24); CHLORIDE 109 mmol/L (98-107); CREATININE 0.76 mg/dL (0.55-1.02); SGOT/AST 77 IU/L (3-35); SGPT/ALT 581 U/L (12-78); SODIUM 141 mmol/L (136-145); TOTAL PROTEIN 7.3 gm/dL (6.4-8.2)
[2019-05-10 08:00] VITALS: BP 97/73
[2019-05-10 08:08] LABS: HEPATITIS B SURFACE AG Negative (Negative)
--- NOTE | 2019-05-10 08:40 | NUR ---
PT COMPLAINS "PAIN IN MY LEGS IS A 5/10 AND I FEEL NAUSEOUS." GIVEN MOTRIN 600 MG PO AND ZOFRAN 4 MG PO. WILL CONTINUE TO ASSESS. JOSELUIS MCINTYRECC
--- NOTE | 2019-05-10 11:06 | NUR ---
PATIENT HAS BEEN ACCEPTED TO [facility] FOR RESIDENTIAL TREATMENT. PATIENT IS SCHEDULED TO BE THERE ON MONDAY, May BY 2PM. NE STAFF WILL SENT UP TRANSPORTATION THROUGH HER INSURANCE IF NEEDED. PATIENT AGREES AND UNDERSTANDS HER AFTERCARE PLAN. VICENTE MADDOX B.A. MOLD FINISHER
[2019-05-10 12:00] VITALS: BP 102/65
--- NOTE | 2019-05-10 13:37 | NUR ---
Requip given per patient c/o wrestless legs. Will monitor.
[2019-05-10 16:00] VITALS: BP 104/67
[2019-05-10 20:00] VITALS: BP 113/70
--- NOTE | 2019-05-10 20:30 | NUR ---
A 39, admitted to 5E, under the services of RITESH Raygoza DO with a diagnosis of anxiety, generalized weakness. Chief complaint is inability to preform ADL'S. Patient arrived via bed from [place]. Monitor applied. Initial assessment completed. Vital signs taken and recorded. RITESH RAYGOZA DO notified of admission to the unit. Orders received. See assessment for past medical history, medications and allergies. Patient and/or family oriented to unit. [address] visitation policy reviewed. Clothing/patient valuable form completed. PT CRYING AND ROCKING BACK AND FORTH. STATES SHE IS EXTREMELY ANXIOUS. NO WOUNDS NOTED. JIA ROGER
[2019-05-11] VITALS: BP 106/73
[2019-05-11 06:43] LABS: SGOT/AST 66 IU/L (3-35); SGPT/ALT 400 U/L (12-78)
[2019-05-11 06:45] LABS: ALKALINE PHOSPHATASE 298 U/L (45-117)
[2019-05-11 08:00] VITALS: BP 110/62
--- NOTE | 2019-05-11 09:21 | NUR ---
MEDICATED WITH REQUIP PER ORDER AND REQUEST.
[2019-05-11 12:00] VITALS: BP 104/56
[2019-05-11 16:00] VITALS: BP 108/58
--- NOTE | 2019-05-11 18:10 | NUR ---
MEDICATED WITH PRN ROBAXIN PER ORDER AND REQUEST.
[2019-05-11 20:00] VITALS: BP 116/63
--- NOTE | 2019-05-11 20:06 | NUR ---
AWAKE & ALERT WATCHING T.V. VOICES NO C/O AT THIS TIME. CALL LIGHT WITHIN REACH.
--- NOTE | 2019-05-11 21:30 | NUR ---
TOOK PO MEDICATION WITHOUT DIFFICULTY. CALL LIGHT WITHIN REACH.
[2019-05-12] VITALS: BP 116/73; BP 91/52
[2019-05-12 08:00] VITALS: BP 113/69
--- NOTE | 2019-05-12 09:49 | NUR ---
MEDICATED WITH ZOFRAN AND REQUIP PER ORDERS ASND REQUEST.
[2019-05-12 12:00] VITALS: BP 120/76
[2019-05-12 16:00] VITALS: BP 124/64
--- NOTE | 2019-05-12 17:28 | NUR ---
RESPIRATORY CHECKED POX BEFORE TREATMENT AND IT WAS 87% RA. DR. GAYTAN AWARE AND OXYGEN ORDERED.
[2019-05-12 20:00] VITALS: BP 114/66
--- NOTE | 2019-05-12 20:07 | NUR ---
MEDICATED WITH ZOFRAN FOR COMPLAINTS OF GI UPSET. WILL CONTINUE TO MONITOR.
--- NOTE | 2019-05-12 21:21 | NUR ---
MEDICATED [facility] REQUIP FOR COMPLAINTS OF RESTLESS LEGS. WILL CONTINUE TO MONITOR. CALL LIGHT IN REACH.
[2019-05-13] VITALS: BP 121/69
--- NOTE | 2019-05-13 05:45 | NUR ---
MEDICATED WITH ZOFRAN FOR COMPLAINTS OF GI UPSET. WILL CONTINUE TO MONITOR.
[2019-05-13 08:00] VITALS: BP 102/68
[2019-05-13 10:19] LABS: HEPATITIS C VIRUS ANTIBODY >11.0 s/co (0.0-0.9)
--- NOTE | 2019-05-13 10:41 | NUR ---
NOTIFIED DR HERNANDEZ THAT LAB NOTIFIES THIS NURSE THAT PT HEPATITIS C ANTIBODY HAS COME BACK POSITIVE.
[2019-05-13] MEDS ORDERED: ATARAX,VISTARIL50 MG PO (10:56)
[2019-05-13] MEDS ORDERED: ZOFRAN 4 MG ED2 TAB PO (10:56)
[2019-05-13] MEDS ORDERED: PREDNISONE10 MG PO (10:56)
[2019-05-13] MEDS ORDERED: ZITHROMAX250 MG PO (10:56)
--- NOTE | 2019-05-13 13:30 | NUR ---
SPOKE WITH VICENTE FROM [facility] REGARDING PT MEDICATIONS AND SCRIPTS THAT ARE AT [facility]. VICENTE STATES THAT SHE WILL SET UP TRANSPORTATION FOR PT DISCHARGE AND WILL NOTIFY PT CINDER SNAPPER FROM [facility] REGARDING MEDICATION FINAL ASSEMBLY AND PACKING SUPERVISOR.
--- NOTE | 2019-05-13 13:45 | NUR ---
SPOKE WITH [facility] AND THEY CONFIRMED THAT PT DID SUPPORT ARCHITECT MEDICATIONS ON 05/08: XANAX, GABAPENTIN, AND PROZAC.
--- NOTE | 2019-05-13 14:00 | NUR ---
DISCHARGE PAPERWORK REVIEWED WITH PATIENT.
--- NOTE | 2019-05-13 14:30 | NUR ---
Discharge instructions reviewed with patient/family. Patient receptive and verbalizes understanding. Follow-up care arranged. Written instructions given to patient/family. SAROJ GONZÁLES
== END 2019-05-13 14:00 | disposition home or self-care (01) | DRG 773 ==
LOC: 5E 12:12
PROVIDERS: Internal Medicine; ADMIT Family Medicine
DX: F11.23 Opioid dependence with withdrawal (principal); J44.9 Chronic obstructive pulmonary disease, unspecified; J45.909 Unspecified asthma, uncomplicated; R00.0 Tachycardia, unspecified; R74.0 Nonspecific elevation of levels of transaminase and lactic acid dehydrogenase [LDH]; R07.89 Other chest pain; F43.10 Post-traumatic stress disorder, unspecified; F32.9 Major depressive disorder, single episode, unspecified; R10.9 Unspecified abdominal pain; L03.116 Cellulitis of left lower limb; G89.29 Other chronic pain; F17.210 Nicotine dependence, cigarettes, uncomplicated; Z98.51 Tubal ligation status; Z83.3 Family history of diabetes mellitus; Z82.49 Family history of ischemic heart disease and other diseases of the circulatory system; Z80.1 Family history of malignant neoplasm of trachea, bronchus and lung; Z88.1 Allergy status to other antibiotic agents; Z88.2 Allergy status to sulfonamides

== ENCOUNTER 2020-01-11 09:24 | Emergency (ER) | payer OTHER ==
[~2020-01-11] VITALS: Ht 160 cm; Wt 86.2 kg
[~2020-01-11 09:24] MED LIST changes: +ATARAX,VISTARIL50 MG PO; +REXULTI1 MG PO; +ZOFRAN 4 MG ED2 TAB PO
[2020-01-11] MEDS ORDERED: CORTISPORIN SUS10 ML OT (09:48)
[2020-01-11] MEDS ORDERED: PROAIR HFA8.5 GM INH (09:48)
== END 2020-01-11 10:13 | disposition home or self-care (01) ==
LOC: ED 09:24
DX: S61.210A Laceration without foreign body of right index finger without damage to nail, initial encounter (principal); H92.02 Otalgia, left ear; J45.909 Unspecified asthma, uncomplicated; F17.200 Nicotine dependence, unspecified, uncomplicated; Z23 Encounter for immunization; Z76.0 Encounter for issue of repeat prescription; Z88.2 Allergy status to sulfonamides; Z79.899 Other long term (current) drug therapy; W45.8XXA Other foreign body or object entering through skin, initial encounter; Y93.89 Activity, other specified; Y92.89 Other specified places as the place of occurrence of the external cause; Y99.8 Other external cause status

== ENCOUNTER → 2020-06-11 | Outpatient (CLI) | payer OTHER ==
[~2020-06-11] MED LIST changes: +CORTISPORIN SUS10 ML OT
== END | disposition home or self-care (01) ==
LOC: COVID19 11:53
PROVIDERS: ATTEND Family Medicine
DX: M79.10 Myalgia, unspecified site (principal); Z20.828 Contact with and (suspected) exposure to other viral communicable diseases

== ENCOUNTER → 2020-07-10 | Outpatient (CLI) | payer OTHER ==
[2020-07-10 12:36] LABS: BASO % 0.5 % (0.0-1.0); EOS # 0.1 10*3/uL (0.0-0.4); EOS % 1.8 % (1.0-4.0); HEMATOCRIT 45.8 % (37.0-47.0); LYMPH # 2.6 10*3/uL (1.3-4.4); LYMPH % 39.7 % (27.0-41.0); MEAN CELL VOLUME 81.3 fl (81.0-99.0); MEAN CORPUSCULAR HGB CONC 33.2 g/dl (33.0-37.0); MEAN PLATELET VOLUME 9.7 fl (9.6-12.3); MONO # 0.4 10*3/uL (0.1-1.0); MONO % 5.5 % (3.0-9.0); NEUT # 3.4 10*3/uL (2.3-7.9); NEUT % 52.3 % (47.0-73.0); PLATELET COUNT AUTOMATED 176 10*3/uL (130-400); RED BLOOD COUNT 5.63 10*6/uL (4.10-5.10); RED CELL DISTRI WIDTH 13.2 % (0-14.5); WHITE BLOOD COUNT 6.6 10*3/uL (4.8-10.8)
[2020-07-10 13:03] LABS: ALBUMIN 3.8 gm/dl (3.1-4.5); ALKALINE PHOSPHATASE 82 U/L (45-117); BILIRUBIN, DIRECT < 0.1 mg/dL (0.0-0.2); BUN 12 mg/dl (7-24); CHLORIDE 110 mmol/L (98-107); CREATININE 0.85 mg/dL (0.55-1.02); POTASSIUM 3.8 mmol/L (3.5-5.1); SGOT/AST 19 IU/L (3-35); SGPT/ALT 24 U/L (12-78); SODIUM 140 mmol/L (136-145)
[2020-07-11 03:06] LABS: HEP B CORE AB, IGM Negative (Negative); HEPATITIS B SURFACE AG Negative (Negative)
[2020-07-13 10:15] LABS: HEPATITIS C VIRUS ANTIBODY >11.0 s/co (0.0-0.9)
[2020-07-15 18:07] LABS: TB1 Ag VALUE 0.17 IU/mL (.)
== END | disposition home or self-care (01) ==
LOC: LAB 11:51
PROVIDERS: ATTEND Registered Nurse Critical Care Medicine
DX: F11.11 Opioid abuse, in remission (principal); F14.11 Cocaine abuse, in remission

== ENCOUNTER → 2020-09-28 | Outpatient (CLI) | payer OTHER | END | disposition home or self-care (01) | LOC: COVID19 14:30 | PROVIDERS: ATTEND Family Medicine | DX: R06.9 Unspecified abnormalities of breathing (principal); Z20.822 Contact with and (suspected) exposure to COVID-19 ==

== ENCOUNTER 2020-11-24 17:08 | Emergency (ER) | payer OTHER ==
[~2020-11-24] VITALS: Ht 162.5 cm; Wt 81.6 kg
[2020-11-24] MEDS ORDERED: BUPRENORPHINE-1 EAC1 SL (17:24)
[2020-11-24] MEDS ORDERED: CEPHALEXIN500 M1 PO (17:30)
== END 2020-11-24 17:57 | disposition home or self-care (01) ==
LOC: ED 17:08
DX: T25.221A Burn of second degree of right foot, initial encounter (principal); Z79.899 Other long term (current) drug therapy; X08.8XXA Exposure to other specified smoke, fire and flames, initial encounter; Y93.89 Activity, other specified; Y92.89 Other specified places as the place of occurrence of the external cause; Y99.8 Other external cause status

== ENCOUNTER → 2020-11-26 | Outpatient (CLI) | payer OTHER ==
[~2020-11-26] MED LIST changes: +BUPRENORPHINE-1 EAC1 SL; +CEPHALEXIN500 M1 PO
== END | disposition home or self-care (01) ==
LOC: WOUNDCARE 01:00
PROVIDERS: ATTEND Nurse Practitioner
DX: T25.321A Burn of third degree of right foot, initial encounter (principal); T31.0 Burns involving less than 10% of body surface; L03.115 Cellulitis of right lower limb; F32.9 Major depressive disorder, single episode, unspecified; F17.290 Nicotine dependence, other tobacco product, uncomplicated; Z98.890 Other specified postprocedural states; Z79.899 Other long term (current) drug therapy; X10.2XXA Contact with fats and cooking oils, initial encounter; Y93.89 Activity, other specified; Y92.89 Other specified places as the place of occurrence of the external cause; Y99.8 Other external cause status

== ENCOUNTER → 2020-12-03 | Outpatient (CLI) | payer OTHER | LOC: WOUNDCARE 02:06 | PROVIDERS: ATTEND Nurse Practitioner | DX: T25.321D Burn of third degree of right foot, subsequent encounter (principal); L03.115 Cellulitis of right lower limb; F32.9 Major depressive disorder, single episode, unspecified; F17.290 Nicotine dependence, other tobacco product, uncomplicated; Z98.890 Other specified postprocedural states; Z79.899 Other long term (current) drug therapy; X10.2XXD Contact with fats and cooking oils, subsequent encounter ==

== ENCOUNTER → 2021-02-17 | Outpatient (CLI) | payer OTHER | END | disposition home or self-care (01) | LOC: COVID19 15:14 | PROVIDERS: ATTEND Internal Medicine | DX: U07.1 COVID-19 (principal) ==

== ENCOUNTER 2021-05-04 15:03 | Emergency (ER) | payer OTHER ==
[~2021-05-04] VITALS: Ht 162.5 cm; Wt 79.4 kg
== END 2021-05-04 19:00 | disposition left against medical advice (07) ==
LOC: ED 15:03
DX: M54.50 Low back pain, unspecified (principal); Z53.21 Procedure and treatment not carried out due to patient leaving prior to being seen by health care provider

== ENCOUNTER → 2021-06-17 | Outpatient (CLI) | payer OTHER | END | disposition home or self-care (01) | LOC: COVID19 16:06 | PROVIDERS: ATTEND Internal Medicine | DX: Z20.822 Contact with and (suspected) exposure to COVID-19 (principal) ==

== ENCOUNTER 2021-07-13 01:46 | Emergency (ER) | payer OTHER ==
[~2021-07-13] VITALS: Ht 167.6 cm; Wt 89.8 kg
== END 2021-07-13 03:55 | disposition home or self-care (01) ==
LOC: ED 01:46
DX: S01.511A Laceration without foreign body of lip, initial encounter (principal); Z88.1 Allergy status to other antibiotic agents; Z98.51 Tubal ligation status; Z98.890 Other specified postprocedural states; Z87.891 Personal history of nicotine dependence; Y08.89XA Assault by other specified means, initial encounter; Y93.89 Activity, other specified; Y92.89 Other specified places as the place of occurrence of the external cause; Y99.8 Other external cause status

== ENCOUNTER 2021-12-01 10:31 | Emergency (ER) | payer OTHER ==
[~2021-12-01] VITALS: Wt 81.6 kg
[2021-12-01] MEDS ORDERED: CYCLOBENZAPRINE10 MG PO (10:57)
[2021-12-01] MEDS ORDERED: TYLENOL325 M1 PO (10:57)
[2021-12-01] MEDS ORDERED: NAPROXEN250 MG PO (10:57)
[2021-12-01] MEDS ORDERED: VOLTAREN ARTHRI20 GM T (10:57)
== END 2021-12-01 11:12 | disposition home or self-care (01) ==
LOC: ED 10:31
DX: M54.42 Lumbago with sciatica, left side (principal)

== ENCOUNTER 2022-01-13 10:39 | Emergency (ER) | payer OTHER ==
[~2022-01-13] VITALS: Ht 162.5 cm; Wt 81.6 kg
[~2022-01-13 10:39] MED LIST changes: +NAPROXEN250 MG PO; +TYLENOL325 M1 PO; +VOLTAREN ARTHRI20 GM T
[2022-01-13] MEDS ORDERED: SUBOXONE 8 MG-1 EACH PO (10:52)
== END 2022-01-13 12:45 | disposition home or self-care (01) ==
LOC: ED 10:39
DX: B27.90 Infectious mononucleosis, unspecified without complication (principal); Z20.822 Contact with and (suspected) exposure to COVID-19; R19.7 Diarrhea, unspecified; R51.9 Headache, unspecified; F17.200 Nicotine dependence, unspecified, uncomplicated; Z88.1 Allergy status to other antibiotic agents; Z88.2 Allergy status to sulfonamides; Z79.899 Other long term (current) drug therapy; Z98.51 Tubal ligation status; Z98.890 Other specified postprocedural states

== ENCOUNTER → 2022-01-24 | Outpatient (CLI) | payer OTHER | END | disposition home or self-care (01) | LOC: LAB 13:21 | PROVIDERS: ATTEND Family Medicine | DX: J30.9 Allergic rhinitis, unspecified (principal) ==

== ENCOUNTER 2022-02-14 20:55 | Emergency (ER) | payer OTHER ==
[~2022-02-14] VITALS: Ht 167.6 cm; Wt 95.3 kg
[2022-02-14 21:17] LABS: BASO % 0.3 % (0.0-1.0); EOS % 0.2 % (1.0-4.0); HEMATOCRIT 41.9 % (37.0-47.0); LYMPH # 2.3 10*3/uL (1.3-4.4); LYMPH % 24.5 % (27.0-41.0); MEAN CORPUSCULAR HGB 28.8 pg (27.0-31.0); MEAN CORPUSCULAR HGB CONC 33.9 g/dl (33.0-37.0); MEAN PLATELET VOLUME 9.3 fl (9.6-12.3); MONO # 0.4 10*3/uL (0.1-1.0); MONO % 4.6 % (3.0-9.0); NEUT # 6.5 10*3/uL (2.3-7.9); NEUT % 70.3 % (47.0-73.0); PLATELET COUNT AUTOMATED 188 10*3/uL (130-400); RED BLOOD COUNT 4.93 10*6/uL (4.10-5.10); RED CELL DISTRI WIDTH 13.7 % (0-14.5); WHITE BLOOD COUNT 9.3 10*3/uL (4.8-10.8)
[2022-02-14 21:32] LABS: ALKALINE PHOSPHATASE 67 U/L (45-117); BUN 9 mg/dl (7-24); CHLORIDE 110 mmol/L (98-107); CREATININE 0.75 mg/dL (0.55-1.02); ETHYL ALCOHOL < 3.0 mg/dl (<3); POTASSIUM 3.5 mmol/L (3.5-5.1); SGOT/AST 16 IU/L (3-35); SGPT/ALT 28 U/L (12-78); SODIUM 140 mmol/L (136-145)
[2022-02-14 21:33] LABS: ACETAMINOPHEN (TYLENOL) < 5.0 ug/ml (10-30)
[2022-02-14 22:21] LABS: BILIRUBIN Negative (Negative); BLOOD Negative (Negative); CLARITY Clear (Clear); COLOR Yellow (Yellow); GLUCOSE Negative (Negative); KETONE Trace (Negative); LEUKO ESTERASE 1+ (Negative); NITRITE Negative (Negative); PH 5.5 (4.5-8.0)
[2022-02-14 22:31] LABS: URINE AMPHETAMINES < 1000 (1000ng/ml); URINE BARBITURATES < 200 (200ng/ml); URINE BENZODIAZEPINES < 200 (200ng/ml); URINE CANNABINOIDS (THC) < 50 (50ng/ml); URINE COCAINE < 300 (300ng/ml); URINE METHADONE < 300 (300ng/ml); URINE OPIATES < 300 (300ng/ml)
[2022-02-14 22:33] LABS: BACTERIA 1+; MUCOUS 1+
[2022-02-14 22:35] LABS: URINE PHENCYCLIDINE < 25 (25ng/ml)
== END 2022-02-15 00:16 | disposition home or self-care (01) ==
LOC: ED 20:55
PROVIDERS: Emergency Medicine
DX: F41.9 Anxiety disorder, unspecified (principal); F19.10 Other psychoactive substance abuse, uncomplicated; F43.10 Post-traumatic stress disorder, unspecified; J44.9 Chronic obstructive pulmonary disease, unspecified; F32.A Depression, unspecified; F17.210 Nicotine dependence, cigarettes, uncomplicated; Z88.1 Allergy status to other antibiotic agents; Z88.2 Allergy status to sulfonamides; Z98.51 Tubal ligation status; Z98.890 Other specified postprocedural states

== ENCOUNTER 2022-02-16 16:29 | Emergency (ER) | payer OTHER ==
[2022-02-16 16:58] LABS: BASO % 0.3 % (0.0-1.0); EOS % 0.1 % (1.0-4.0); HEMATOCRIT 41.6 % (37.0-47.0); LYMPH # 2.3 10*3/uL (1.3-4.4); LYMPH % 22.4 % (27.0-41.0); MEAN CELL VOLUME 85.2 fl (81.0-99.0); MEAN CORPUSCULAR HGB 29.3 pg (27.0-31.0); MEAN CORPUSCULAR HGB CONC 34.4 g/dl (33.0-37.0); MEAN PLATELET VOLUME 9.2 fl (9.6-12.3); MONO # 0.5 10*3/uL (0.1-1.0); MONO % 5.2 % (3.0-9.0); NEUT # 7.4 10*3/uL (2.3-7.9); NEUT % 71.6 % (47.0-73.0); PLATELET COUNT AUTOMATED 191 10*3/uL (130-400); RED BLOOD COUNT 4.88 10*6/uL (4.10-5.10); RED CELL DISTRI WIDTH 13.6 % (0-14.5); WHITE BLOOD COUNT 10.3 10*3/uL (4.8-10.8)
[2022-02-16 17:13] LABS: ALKALINE PHOSPHATASE 67 U/L (45-117); BUN 12 mg/dl (7-24); CHLORIDE 109 mmol/L (98-107); CREATININE 1.01 mg/dL (0.55-1.02); POTASSIUM 3.6 mmol/L (3.5-5.1); SGOT/AST 16 IU/L (3-35); SGPT/ALT 27 U/L (12-78); SODIUM 136 mmol/L (136-145); TOTAL PROTEIN 7.9 gm/dL (6.4-8.2)
[2022-02-16 17:15] LABS: CPK 116 U/L (26-192)
[2022-02-16 17:18] LABS: B-hCG (QUALITATIVE) NEGATIVE (NEGATIVE)
[2022-02-16 17:24] LABS: ACETAMINOPHEN (TYLENOL) < 5.0 ug/ml (10-30); ETHYL ALCOHOL < 3.0 mg/dl (<3)
[2022-02-16 17:45] LABS: ACT PARTIAL THROMBO TIME 26.5 SECONDS (20.0-32.1)
[2022-02-16 19:00] LABS: BILIRUBIN Negative (Negative); BLOOD Negative (Negative); CLARITY Clear (Clear); COLOR Yellow (Yellow); GLUCOSE Negative (Negative); KETONE Trace (Negative); LEUKO ESTERASE 1+ (Negative); NITRITE Negative (Negative); PH 6.5 (4.5-8.0); SPECIFIC GRAVITY <= 1.005 (1.001-1.030); UROBILINOGEN 0.2 E.U./dl (0.0-1.0)
[2022-02-16 19:08] LABS: URINE AMPHETAMINES < 1000 (1000ng/ml); URINE BARBITURATES < 200 (200ng/ml); URINE BENZODIAZEPINES < 200 (200ng/ml); URINE CANNABINOIDS (THC) > 50 (50ng/ml); URINE COCAINE < 300 (300ng/ml); URINE METHADONE < 300 (300ng/ml); URINE OPIATES < 300 (300ng/ml)
[2022-02-16 19:10] LABS: URINE PHENCYCLIDINE < 25 (25ng/ml)
[2022-02-16 19:30] LABS: BACTERIA 1+; EPITHELIAL CELLS 31-40; RBC 0-2 rbc/hpf (0-2)
== END 2022-02-17 17:23 ==
LOC: ED 16:29
PROVIDERS: Emergency Medicine
DX: F29 Unspecified psychosis not due to a substance or known physiological condition (principal); Z20.822 Contact with and (suspected) exposure to COVID-19; J44.9 Chronic obstructive pulmonary disease, unspecified; Z88.1 Allergy status to other antibiotic agents; Z87.891 Personal history of nicotine dependence; Z98.890 Other specified postprocedural states; Z98.51 Tubal ligation status

== ENCOUNTER → 2022-04-06 | Outpatient (CLI) | payer OTHER | END | disposition home or self-care (01) | LOC: RAD 13:04 | PROVIDERS: ATTEND Family Medicine | DX: J44.9 Chronic obstructive pulmonary disease, unspecified (principal) ==

== ENCOUNTER 2023-06-28 06:19 | Emergency (ER) | payer OTHER ==
[~2023-06-28] VITALS: Ht 162.5 cm; Wt 97.1 kg
[2023-06-28 06:52] LABS: BASO % 0.5 % (0.0-1.0); EOS # 0.1 10*3/uL (0.0-0.4); EOS % 1.5 % (1.0-4.0); HEMATOCRIT 42.4 % (37.0-47.0); LYMPH % 37.8 % (27.0-41.0); MEAN CELL VOLUME 84.1 fl (81.0-99.0); MEAN CORPUSCULAR HGB 27.8 pg (27.0-31.0); MEAN PLATELET VOLUME 9.4 fl (9.6-12.3); MONO # 0.4 10*3/uL (0.1-1.0); MONO % 5.4 % (3.0-9.0); NEUT # 4.3 10*3/uL (2.3-7.9); NEUT % 54.4 % (47.0-73.0); PLATELET COUNT AUTOMATED 165 10*3/uL (130-400); RED BLOOD COUNT 5.04 10*6/uL (4.10-5.10); RED CELL DISTRI WIDTH 13.3 % (0-14.5); WHITE BLOOD COUNT 7.9 10*3/uL (4.8-10.8)
[2023-06-28 07:03] LABS: ACT PARTIAL THROMBO TIME 26.4 SECONDS (20.0-32.1)
[2023-06-28 07:14] LABS: ALKALINE PHOSPHATASE 82 U/L (46-116); BUN 10 mg/dl (9-23); CHLORIDE 106 mmol/L (98-107); POTASSIUM 3.7 mmol/L (3.4-5.1); SGPT/ALT 33 U/L (5-49); TOTAL PROTEIN 7.9 gm/dL (6.0-8.0)
== END 2023-06-28 09:49 | disposition home or self-care (01) ==
LOC: ED 06:19
PROVIDERS: Emergency Medicine
DX: R07.89 Other chest pain (principal); M25.512 Pain in left shoulder; F41.9 Anxiety disorder, unspecified; J44.9 Chronic obstructive pulmonary disease, unspecified; F32.A Depression, unspecified; F17.200 Nicotine dependence, unspecified, uncomplicated; F11.90 Opioid use, unspecified, uncomplicated; Z88.1 Allergy status to other antibiotic agents; Z88.2 Allergy status to sulfonamides; Z88.8 Allergy status to other drugs, medicaments and biological substances; Z98.51 Tubal ligation status; Z98.890 Other specified postprocedural states

== ENCOUNTER 2024-02-26 19:24 | Emergency (ER) | payer OTHER ==
[~2024-02-26] VITALS: Ht 162.5 cm; Wt 99.8 kg
[2024-02-26] MEDS ORDERED: Dicyclomine Hydrochloride 20 MG/10 ML OSYR PO STA (20:12)
[2024-02-26] MEDS ORDERED: Lidocaine Hydrochloride 15 ML UDC PO STA (20:12)
[2024-02-26] MEDS ORDERED: MG-AL HYDROXIDE/SIMETICONE 30 ML UDC PO STA (20:12)
[2024-02-26 20:19] LABS: BILIRUBIN Negative (Negative); BLOOD Negative (Negative); CLARITY Cloudy (Clear); COLOR Yellow (Yellow); GLUCOSE Negative (Negative); KETONE Negative (Negative); LEUKO ESTERASE Negative (Negative); NITRITE Negative (Negative); PH 5.5 (4.5-8.0)
[2024-02-26] MEDS ORDERED: IOHEXOL 300 MG/ML 100 ML VIAL IV ONE (20:20)
[2024-02-26 20:30] LABS: BACTERIA 2+; MUCOUS 1+; WBC 0-2 wbc/hpf (0-5)
[2024-02-26 20:37] LABS: BASO # 0.1 10*3/uL (0.0-0.1); BASO % 0.7 % (0.0-1.0); EOS # 0.1 10*3/uL (0.0-0.4); EOS % 1.3 % (1.0-4.0); HEMATOCRIT 43.9 % (37.0-47.0); LYMPH # 2.3 10*3/uL (1.3-4.4); LYMPH % 32.4 % (27.0-41.0); MEAN CELL VOLUME 83.3 fl (81.0-99.0); MEAN CORPUSCULAR HGB 27.3 pg (27.0-31.0); MEAN CORPUSCULAR HGB CONC 32.8 g/dl (33.0-37.0); MEAN PLATELET VOLUME 9.5 fl (9.6-12.3); MONO # 0.4 10*3/uL (0.1-1.0); NEUT # 4.3 10*3/uL (2.3-7.9); NEUT % 59.3 % (47.0-73.0); PLATELET COUNT AUTOMATED 155 10*3/uL (130-400); RED BLOOD COUNT 5.27 10*6/uL (4.10-5.10); RED CELL DISTRI WIDTH 13.5 % (0-14.5); WHITE BLOOD COUNT 7.2 10*3/uL (4.8-10.8)
[2024-02-26 20:57] LABS: ALKALINE PHOSPHATASE 80 U/L (46-116); BUN 10 mg/dl (9-23); CHLORIDE 104 mmol/L (98-107); LIPASE 28 U/L (12-53); POTASSIUM 3.7 mmol/L (3.4-5.1); SGPT/ALT 45 U/L (5-49); TOTAL PROTEIN 7.6 gm/dL (6.0-8.0)
[2024-02-26] MEDS ORDERED: Ondansetron4 MG PO (22:53)
== END 2024-02-26 22:57 | disposition home or self-care (01) ==
LOC: ED 19:24
PROVIDERS: Nurse Practitioner Family
DX: K82.9 Disease of gallbladder, unspecified (principal); R07.89 Other chest pain; K21.9 Gastro-esophageal reflux disease without esophagitis; J45.909 Unspecified asthma, uncomplicated; F17.200 Nicotine dependence, unspecified, uncomplicated; F11.90 Opioid use, unspecified, uncomplicated; Z88.1 Allergy status to other antibiotic agents; Z88.2 Allergy status to sulfonamides; Z88.8 Allergy status to other drugs, medicaments and biological substances; Z98.51 Tubal ligation status; Z98.890 Other specified postprocedural states

== ENCOUNTER 2024-05-09 13:20 | Emergency (ER) | payer OTHER ==
[~2024-05-09] VITALS: Ht 165.1 cm; Wt 95.3 kg
[~2024-05-09 13:20] MED LIST changes: +Ondansetron4 MG PO
[2024-05-09] MEDS ORDERED: ACETAMINOPHEN 325 MG TAB PO ONE (13:35)
[2024-05-09 14:13] LABS: BASO % 0.5 % (0.0-1.0); EOS # 0.2 10*3/uL (0.0-0.4); EOS % 2.6 % (1.0-4.0); HEMATOCRIT 40.5 % (37.0-47.0); MEAN CORPUSCULAR HGB 27.3 pg (27.0-31.0); MEAN CORPUSCULAR HGB CONC 33.3 g/dl (33.0-37.0); MEAN PLATELET VOLUME 9.6 fl (9.6-12.3); MONO # 0.4 10*3/uL (0.1-1.0); MONO % 5.9 % (3.0-9.0); NEUT # 3.6 10*3/uL (2.3-7.9); NEUT % 56.8 % (47.0-73.0); PLATELET COUNT AUTOMATED 149 10*3/uL (130-400); RED BLOOD COUNT 4.94 10*6/uL (4.10-5.10); RED CELL DISTRI WIDTH 13.6 % (0-14.5); WHITE BLOOD COUNT 6.3 10*3/uL (4.8-10.8)
[2024-05-09] MEDS ORDERED: Dicyclomine Hydrochloride 20 MG/10 ML OSYR PO STA (14:16)
[2024-05-09] MEDS ORDERED: Lidocaine Hydrochloride 15 ML UDC PO STA (14:16)
[2024-05-09] MEDS ORDERED: MG-AL HYDROXIDE/SIMETICONE 30 ML UDC PO STA (14:16)
[2024-05-09] MEDS ORDERED: Ketorolac Tromethamine 30 MG/ML VIAL IM ONE (14:20)
[2024-05-09 14:36] LABS: ALKALINE PHOSPHATASE 78 U/L (46-116); BUN 13 mg/dl (9-23); CHLORIDE 106 mmol/L (98-107); LIPASE 28 U/L (12-53); POTASSIUM 3.7 mmol/L (3.4-5.1); SGPT/ALT 51 U/L (5-49); TOTAL PROTEIN 7.4 gm/dL (6.0-8.0)
== END 2024-05-09 15:24 | disposition home or self-care (01) ==
LOC: ED 13:20
PROVIDERS: Physician Assistant Medical
DX: F41.9 Anxiety disorder, unspecified (principal); K82.0 Obstruction of gallbladder; J45.909 Unspecified asthma, uncomplicated; F17.200 Nicotine dependence, unspecified, uncomplicated; F11.90 Opioid use, unspecified, uncomplicated; Z88.1 Allergy status to other antibiotic agents; Z88.2 Allergy status to sulfonamides; Z88.8 Allergy status to other drugs, medicaments and biological substances; Z98.51 Tubal ligation status; Z98.890 Other specified postprocedural states

== ENCOUNTER 2024-10-21 21:01 | Emergency (ER) | payer OTHER ==
[~2024-10-21] VITALS: Ht 165.1 cm; Wt 90.7 kg
[2024-10-21] MEDS ORDERED: Lidocaine Hydrochloride 2% 10 ML AMP SC ONE (21:25)
[2024-10-21] MEDS ORDERED: IBU800 M1 PO (21:52)
[2024-10-21] MEDS ORDERED: Bacitracin Zinc/Neomycin/Pol 15 GM TUBE T ONE (21:55)
[2024-10-21] MEDS ORDERED: IBUPROFEN 800 MG TAB PO ONE (21:55)
== END 2024-10-21 22:12 | disposition home or self-care (01) ==
LOC: ED 21:01
DX: S61.012A Laceration without foreign body of left thumb without damage to nail, initial encounter (principal); F32.A Depression, unspecified; F17.200 Nicotine dependence, unspecified, uncomplicated; Z88.1 Allergy status to other antibiotic agents; Z88.2 Allergy status to sulfonamides; Z79.899 Other long term (current) drug therapy; Z98.890 Other specified postprocedural states; W26.0XXA Contact with knife, initial encounter; Y93.G1 Activity, food preparation and clean up; Y92.098 Other place in other non-institutional residence as the place of occurrence of the external cause; Y99.8 Other external cause status